=== PATIENT | male | born 1965 | race Caucasian/White ===

== ENCOUNTER → 2018-07-31 | Outpatient (CLI) | payer OTHER ==
--- NOTE | 2018-07-31 16:09 | PCVCIMAG ---
APPROVED REPORT Study performed: 07/31/2018 14:26:52 EXAM: Comprehensive 2D, Doppler, and color-flow Echocardiogram Patient Location: Echo lab Room #: 2Status: routine BSA: 1.92 HR: 77 bpmBP: 126/92 mmHg Rhythm: NSR Other Information Study Quality: Good Risk Factors: Cardiac Risk Factors: HTN, Hyperlipidemia Indications Abnormal ECG Dyspnea Hypertension/HDD 2D Dimensions IVSd: 7.16 (7-11mm)LVOT Diam: 23.15 (18-24mm) LVDd: 52.16 mm PWd: 10.48 (7-11mm)Ascending Ao: 31.47 (22-36mm) LVDs: 40.18 (25-40mm) Left Atrium: 34.46 (27-40mm) Aortic Root: 23.63 mm LV Single Plane 4CH: 46.89 % LV Single Plane 2CH: 57.35 % Biplane EF: 53.7 % Volumes Left Atrial Volume (Systole) Single Plane 4CH: 57.03 mLSingle Plane 2CH: 94.18 mL Biplane LA Volume: 74.00 mLLA ESV Index: 38.00 mL/m2 Aortic Valve AoV Peak Bladimir.: 1.24 m/s AO Peak Gr.: 6.14 mmHgLVOT Max P.27 mmHg LVOT Max V: 0.75 m/s GLADIS Vmax: 2.56 cm2 Mitral Valve E/A Ratio: 1.5 MV Decel. Time: 128.13 ms MV E Max Bladimir.: 0.87 m/s MV A Bladimir.: 0.60 m/s IVRT: 100.35 ms TDI E/Lateral E': 7.91E/Medial E': 12.43 Medial E' Bladimir.: 0.07 m/s Lateral E' Bladimir.: 0.11 m/s Pulmonary Valve PV Peak Bladimir.: 0.95 m/sPV Peak Gr.: 3.59 mmHg Pulmonary Vein P Vein S: 0.52 m/sP Vein A: 0.28 m/s P Vein D: 0.42 m/sP Vein A Dur.: 100.3 msec P Vein S/D Ratio: 1.24 Tricuspid Valve TR Peak Bladimir.: 2.55 m/s TR Peak Gr.: 26.09 mmHg TV Vmax: 0.60 m/sPA Pressure: 33.00 mmHg Left Ventricle The left ventricle is normal size. There is normal LV segmental wall motion. There is normal left ventricular wall thickness. Left ventricular systolic function is normal. LVEF is 55%. Right Ventricle The right ventricle is normal size. The right ventricular systolic function is normal. Atria Left atrium is mildly dilated. The right atrium size is normal. Aortic Valve The aortic valve is not well visualized. No aortic regurgitation is present. There is no aortic valvular stenosis. Mitral Valve The mitral valve is normal in structure. Trace mitral regurgitation. No evidence of mitral valve stenosis. Tricuspid Valve The tricuspid valve is normal in structure. Mild tricuspid regurgitation with a PA pressure of 33 mmHg. Pulmonic Valve The pulmonary valve is normal in structure. There is no pulmonic valvular regurgitation. Great Vessels The aortic root is normal in size. The ascending aorta is normal in size. Aortic arch is normal in caliber. IVC is normal in size and collapses >50% with inspiration. Pericardium There is no pericardial effusion. There is no pleural effusion. <Conclusion> The left ventricle is normal size. There is normal left ventricular wall thickness. Left ventricular systolic function is normal. The right ventricle is normal size. Left atrium is mildly dilated. The right atrium size is normal. There is no aortic valvular stenosis. Trace mitral regurgitation. Mild tricuspid regurgitation with a PA pressure of 33 mmHg.
--- NOTE | 2018-07-31 16:34 | PCVCIMAG ---
APPROVED REPORT Study performed: 07/31/2018 14:59:47 Exam: Stress Echocardiogram Indication: Dyspnea, abnormal EKG,HTN Patient Location: Echo lab Stress Nurse: Yahaira Malone RN Room #: 2 Status: routine Ht: 5 ft 6 in HR: 80 bpm BP: 126/92 mmHg Rhythm: NSR Medical History Medical History: HTN, Hyperlipidemia,asthma Cardiac Risk Factors: HTN, Hyperlipidemia Previous Cardiac Procedures: none Pretest Chest Pain Characteristics: No chest pain Exercise History: Physically active Procedure The patient underwent an Exercise Stress Test using the Laura Protocol. Blood pressure, heart rate, and EKG were monitored. An Echocardiogram was performed by thermoplastic technician in four stages in quad fashion. At peak stress, four selected images were obtained and placed side by side with resting images for comparison. Stress Test Details Stress Test: Exercise stress testing was performed using a Laura protocol. HR Resting HR: 80 bpmMax Heart Rate (APMHR): 166 bpm Max HR Achieved: 169 bpmTarget HR (85% APMHR): 141 bpm % of APMHR: 101 Recovery HR: 105 bpm HR response to stress: Normal HR response to stress BP Resting BP: 126/92 mmHg Max BP: 164/96 mmHg Recovery BP: 144/100 mmHg ECG Resting ECG: Sinus Rhythm, nonspecific ST-T abnormalities Stress ECG: Sinus Rhythm ST Change: Non-ischemic Arrhythmia: Rare PAC,PVC Recovery ECG: Sinus Rhythm Recovery ST Change: Non-ischemic Recovery Arrhythmia: None Clinical Reason for Termination: Maximal effort Stress Symptoms: Dyspnea Exercise duration: 10 min 23 sec Highest Stage Achieved: Stage 4: 4.2 mph at 16% grade. Exercise capacity: 13.4 METs Overall Exercise Capacity for Age: Good Scale: Active Angina Score: None No complications. Stress ECG Conclusion The patient exercised according to the LAURA protocol for 10:23 mins; achieving a work level of 13.4 METS. The resting heart rate of 80 bpm miguel to a maximum heart rate of 169 bpm. This value represent 101% of the maximal, age-predicted heart rate. The resting blood pressure of 126/92 mmHg, miguel to a maximum blood pressure of 164/96mmHg. The exercise test was stopped due to fatigue. Pre-Stress Echo The resting Echocardiogram showed normal left ventricular contractility with an estimated Ejection Fraction of about 50-55%. Normal wall motion in all segments on baseline images. Post-Stress Echo The stress Echocardiogram showed normal left ventricular contractility with an estimated Ejection Fraction of about 60-65%. Normal augmentation of wall motion in all segments on post stress images. Clinical No clinical or ECG evidence for ischemia. Conclusion Clinical Response: Non-ischemic Exercise Capacity: Above average Stress ECG Response: Non-ischemic Stress Echo Images: Non-ischemic The left ventricle is normal in size and wall thickness in both the rest and stress images. No prior study available for comparison. <Conclusion> The left ventricle is normal in size and wall thickness in both the rest and stress images.
== END | disposition home or self-care (01) ==
LOC: PCVCIMAG 15:34
PROVIDERS: ATTEND Internal Medicine Cardiovascular Disease
DX: I07.1 Rheumatic tricuspid insufficiency (principal); E78.5 Hyperlipidemia, unspecified; I10 Essential (primary) hypertension
CPT/HCPCS: 93306; 93351

== ENCOUNTER → 2019-06-17 | Outpatient (CLI) | payer OTHER ==
--- NOTE | 2019-06-17 17:01 | PCVCIMAG ---
APPROVED REPORT Study performed: 06/17/2019 15:50:41 Exam: Stress Echocardiogram Indication: Abnormal EKG, Chest Pain, Hypertension Patient Location: Echo lab Stress Nurse: Farzana Mota RN Status: routine Ht: 5 ft 6 in HR: 78 bpm BP: 132/100 mmHg Rhythm: NSR Medical History Medical History: Hyperlipidemia Procedure The patient underwent an Exercise Stress Test using the Livan Protocol. Blood pressure, heart rate, and EKG were monitored. An Echocardiogram was performed by supervisor sound technician in four stages in quad fashion. At peak stress, four selected images were obtained and placed side by side with resting images for comparison. Stress Test Details Stress Test: Exercise stress testing was performed using a Livan protocol. HR Resting HR: 78 bpmMax Heart Rate (APMHR): 165 bpm Max HR Achieved: 166 bpmTarget HR (85% APMHR): 140 bpm % of APMHR: 100 Recovery HR: 108 bpm HR response to stress: Normal HR response to stress BP Resting BP: 132/100 mmHg Max BP: 160/102 mmHg Recovery BP: 148/90 mmHg BP response to stress: Normal blood pressure response to stress. ECG Resting ECG: Sinus Rhythm Stress ECG: Sinus Rhythm ST Change: Non-ischemic Arrhythmia: PVC's Recovery ECG: Sinus Rhythm Clinical Reason for Termination: Maximal effort Exercise duration: 12 min 00 sec Highest Stage Achieved: Stage 4: 4.2 mph at 16% grade. Exercise capacity: 13.40 METs Overall Exercise Capacity for Age: Good Stress ECG Conclusion ECG: Non-ischemic Clinical: Non-ischemic Pre-Stress Echo The resting Echocardiogram showed normal left ventricular contractility with an estimated Ejection Fraction of about 50-55%. Normal wall motion in all segments on baseline images. Post-Stress Echo The stress Echocardiogram showed normal left ventricular contractility with an estimated Ejection Fraction of about 60-65%. Normal augmentation of wall motion in all segments on post stress images. Clinical No clinical or ECG evidence for ischemia. Conclusion Clinical Response: Non-ischemic Exercise Capacity: Above Average Stress ECG Response: Non-ischemic Stress Echo Images: Non-ischemic The left ventricle is normal in size and wall thickness in both the rest and stress images. Other Information Study Quality: Adequate <Conclusion> The left ventricle is normal in size and wall thickness in both the rest and stress images.
== END | disposition home or self-care (01) ==
LOC: PCVCIMAG 15:28
PROVIDERS: ATTEND Internal Medicine Cardiovascular Disease
DX: R94.31 Abnormal electrocardiogram [ECG] [EKG] (principal); I10 Essential (primary) hypertension; R06.02 Shortness of breath; R07.9 Chest pain, unspecified
CPT/HCPCS: 93325; 93351